=== PATIENT | female | born 1960 | race Caucasian/White ===

== ENCOUNTER 2019-12-05 06:58 | Day surgery (SDC) | payer MEDICAID ==
[~2019-12-05 06:58] MED LIST: Bupivacaine 0.5% 50 ML MDV ONE; Lidocaine 1% with EPINEPHrine 1:100,000 50 ML MDV ONE; Midazolam 1 MG/ML 2 ML SDV ONE; Propofol 200 MG/20 ML SDV ONE; fentaNYL 100 MCG/2 ML SDV ONE
[2019-12-05] MEDS ORDERED: Linezolid 600 MG in Premix Bag 1 BAG IV ONE (07:30)
[2019-12-05] MEDS ORDERED: Dextrose 5%-Lactated Ringers 1,000 ML IV SCH (07:30)
[2019-12-05] MEDS ORDERED: Acetaminophen 500 MG Tab PO ONE (07:30)
[2019-12-05] MEDS ORDERED: Propofol 200 MG/20 ML SDV ONE ×3 (08:42→09:12)
[2019-12-05 10:04] VITALS: BP 127/88; PULSE 70
--- NOTE | 2019-12-11 09:24 | OR ---
DATE OF PROCEDURE: 12/05/2019 SURGEON: Jose Bang MD PREOPERATIVE DIAGNOSIS: Indication for central venous access. POSTOPERATIVE DIAGNOSIS: Indication for central venous access. OPERATIVE PROCEDURE: Placement of Bard PowerPort via left subclavian vein approach (64032). ANESTHESIA: Local plus IV sedation. INDICATION FOR PROCEDURE: This is a 58-year-old female presenting with a new diagnosis of breast carcinoma with axillary isaac involvement. The plan is to proceed with a port placement to facilitate chemotherapy. The patient is HER2 positive, and given this, will be receiving preoperative HER2 targeted therapy prior to local regional surgical treatment. The plan is to proceed with a port to facilitate ongoing chemotherapy. Potential risks of the procedure, including bleeding, infection, injury to the vasculature and/or lung during the operative procedure were reviewed, and the patient wishes to proceed. DETAILS OF PROCEDURE: The patient was taken to the operating room and placed in a supine position. After IV sedation was administered, the upper chest and neck areas were prepped and draped. The left subclavian area was anesthetized with 1% lidocaine mixed with Marcaine. The left subclavian vein was cannulated and guidewire passed, and over the guidewire, a wire was then passed from there into the superior vena cava. Some additional local was then injected, and a transverse infraclavicular incision was made, carried down through the skin and subcutaneous tissue and through the pectoralis major fascia. A pocket was then placed behind the pectoralis fascia, and the Bard PowerPort was then placed in that area and the catheter cut such that the tip would lie in the area of the superior vena cava and right atrial junction. Over the introducer and peel-away catheter, the port catheter was then placed without difficulty. Good in and outflow was noted and the ports were flushed with heparinized saline. The incision was closed with some 3-0 and 4-0 Vicryl stitch deep and 4-0 Vicryl subcuticular stitch. Dressing was applied. The port was cannulated at this point in anticipation of chemotherapy to be given tomorrow. The patient will be receiving preoperative targeted HER2 therapy at this period of time. Near the end of chemotherapy, she should be set up for followup surgical consultation regarding local regional treatment options. Jose Bang MD /[id number]
== END 2019-12-05 11:53 | disposition home or self-care (01) ==
LOC: JP.SDS 06:58
PROVIDERS: ATTEND Surgery
DX: C50.919 Malignant neoplasm of unspecified site of unspecified female breast (principal); C77.3 Secondary and unspecified malignant neoplasm of axilla and upper limb lymph nodes
CPT/HCPCS: A9270-GY; C1788; J1642; J2020; J2250; J2704; J3010; J3490; J7121

== ENCOUNTER 2020-05-09 08:15 | Inpatient (IN) | payer MEDICAID ==
[~2020-05-09 08:15] MED LIST changes: -Bupivacaine 0.5% 50 ML MDV ONE; +Isosulfan Blue 5 ML SDV ONE; -Lidocaine 1% with EPINEPHrine 1:100,000 50 ML MDV ONE; -Midazolam 1 MG/ML 2 ML SDV ONE; -Propofol 200 MG/20 ML SDV ONE; -fentaNYL 100 MCG/2 ML SDV ONE
[2020-05-09] MEDS ORDERED: Acetaminophen 500 MG Tab PO ONE (09:00)
[2020-05-09] MEDS ORDERED: ceFAZolin 2 GM in Premix Bag 1 BAG IV ONE (09:20)
[2020-05-09] MEDS: Dextrose 5%-Lactated Ringers 1,000 ML IV SCH ×2 (09:48→15:35)
[2020-05-09] MEDS ORDERED: Naloxone 0.4 MG/ML SDV IVPUSH PRN (10:19)
[2020-05-09] MEDS ORDERED: HYDROmorphone/Normal Saline 15 MG/30 ML PCA IV PRN (10:19)
[2020-05-09] MEDS ORDERED: Ketamine 50 MG in Sodium Chloride 0.9% 49.5 ML IV SCH (10:30)
[2020-05-09] MEDS ORDERED: Ketamine 500 MG/5 ML MDV IV SCH (10:30)
[2020-05-09] MEDS ORDERED: Naloxone 0.4 MG/ML SDV IV PRN (11:00)
[2020-05-09] MEDS ORDERED: Dexamethasone 4 MG/ML SDV ONE (11:04)
[2020-05-09] MEDS ORDERED: Ondansetron 4 MG/2 ML SDV ONE (11:04)
[2020-05-09] MEDS ORDERED: fentaNYL 250 MCG/5 ML SDV ONE ×2 (11:04→11:59)
[2020-05-09] MEDS ORDERED: Propofol 200 MG/20 ML SDV ONE (11:04)
[2020-05-09] MEDS ORDERED: Glycopyrrolate 0.2 MG/ML 5 ML MDV ONE (11:04)
[2020-05-09] MEDS ORDERED: Rocuronium 50 MG/5 ML Vial ONE (11:04)
[2020-05-09] MEDS ORDERED: Neostigmine Methylsulfate 1 MG/ML 5 ML Syringe ONE (11:04)
[2020-05-09] MEDS ORDERED: hydrOXYzine HCL 100 MG/2 ML SDV IM PRN (14:36)
[2020-05-09] MEDS ORDERED: Ondansetron 4 MG/2 ML SDV IVPUSH PRN (14:36)
[2020-05-09] MEDS ORDERED: Cyclobenzaprine 10 MG Tab PO PRN (15:17)
[2020-05-09] MEDS: ceFAZolin 2 GM in Premix Bag 1 BAG IV SCH (18:07)
[2020-05-09] MEDS: Ibuprofen 800 MG Tab PO SCH (21:01)
[2020-05-09] MEDS ORDERED: diphenhydrAMINE 50 MG/ML SDV IVPUSH PRN (23:11)
[2020-05-10] MEDS: ceFAZolin 2 GM in Premix Bag 1 BAG IV SCH ×2 (02:05→10:30)
[2020-05-10] MEDS: Dextrose 5%-Lactated Ringers 1,000 ML IV SCH (02:06)
[2020-05-10] MEDS ORDERED: Venlafaxine 37.5 MG Cap.ER PO SCH (09:00)
[2020-05-10] MEDS: Ibuprofen 800 MG Tab PO SCH (10:31)
[2020-05-10 11:56] VITALS: BP 117/69; PULSE 75
--- NOTE | 2020-05-13 08:04 | DISCH ---
ADMISSION DIAGNOSIS: Breast cancer, stage IIIA, right upper outer quadrant of right breast, estrogen receptor positive. DISCHARGE DIAGNOSIS: Right modified radical mastectomy for stage IIIA malignant neoplasm of the right upper outer quadrant of right breast, estrogen receptor positive. Date of procedure 05/09/2020. Surgeon: Jose Bang MD. HISTORY: Vikki Wilson is a pleasant 59-year-old female, who has known right breast cancer, and she has had treatment per Oncology. After preoperative evaluation and discussion of possible risks and possible complications, she wished to proceed with surgical procedure. HOSPITAL COURSE: Vikki had her surgery on 05/09/2020. She had no operative complications. On postoperative day #1, her pain was well managed. Vital signs were normal. Activity was good. She received a physical therapy evaluation. Oral intake adequate. She was taught how to manage LESLIE drains at home and is able to be discharged to home on postoperative day 1. PHYSICAL EXAMINATION: GENERAL: Vikki Wilson is a 59-year-old female. VITAL SIGNS: Height is 5 feet 7 inches. Weight is 158 pounds. TPR is 98, 75, 16. Blood pressure 117/69. HEENT: Negative. NECK: Supple. HEART: Regular rate and rhythm. LUNGS: Clear. BREASTS: Right mastectomy dressing is dry and intact. The pressure dressing will be removed prior to discharge to home. ABDOMEN: Soft and nontender. EXTREMITIES: Without peripheral edema. DISPOSITION: Discharged to home. CONDITION: Stable and improving. FOLLOWUP: Appointment with Adelina Lucas PA-C, at [facility] on 05/17/2020 at 9:30 a.m. HOME MEDICATIONS: 1. Dilaudid 2 mg p.o. every 4 hours p.r.n. pain, #30. 2. Tylenol 650 mg q.4 hours p.r.n. pain, #100. To resume home medications. DIET: Usual diet as tolerated. Drink 8 to 10 glasses of water a day. ACTIVITY: As tolerated. No lifting greater than 10 pounds for 6 weeks. Driving: Do not drive for 1 week or while on pain medication. Shower/bathing: May shower. DISCHARGE INSTRUCTIONS: Wound incision care: Keep operative site clean and dry. Strip, empty, measure and record LESLIE drain 4 times a day. Notify provider if any fever, increased pain, swelling, redness, drainage, nausea, or vomiting. SPECIAL INSTRUCTION: Use incentive spirometer 10 times every hour while awake for 1 week.
--- NOTE | 2020-05-19 14:06 | OR ---
DATE OF PROCEDURE: 05/09/2020 SURGEON: Jose Bang MD PREOPERATIVE DIAGNOSES: Carcinoma of right breast with history of metastatic disease to axillary lymph nodes, status post neoadjuvant chemotherapy. POSTOPERATIVE DIAGNOSIS: Carcinoma of right breast with history of metastatic disease to axillary lymph nodes, status post neoadjuvant chemotherapy. PROCEDURE: Right modified radical mastectomy (78355). ANESTHESIA: General. SHOT POLISHER: Adelina Lucas PA-C INDICATIONS FOR PROCEDURE: This is a 59-year-old, presenting with an infiltrating ductal carcinoma in the right breast with metastatic disease confirmed in the axilla. The patient was MT and ER positive as well as Herceptin positive. Has undergone a neoadjuvant course of Taxol, Herceptin, and Perjeta. Clinically, her axillary disease has reduced significantly. Plan is to proceed at this point with a modified radical mastectomy. Potential risks of the procedure including bleeding, infection, injury to underlying nerves, potential local or distant tumor recurrence were reviewed, and the patient wishes to proceed. She is aware the plan thereafter will be course of radiation treatment followed by some additional chemotherapy. DETAILS OF PROCEDURE: The patient was taken to the operating room. After general endotracheal anesthesia was induced, the right breast and surrounding areas were prepped and draped. A transversely oriented elliptical incision was made and carried down through skin and subcutaneous tissue. Subcutaneous flaps were then raised superiorly, inferiorly, laterally, and medially to the usual extent and the breast was reflected off the chest wall in continuity with pectoralis major fascia. During the course of the dissection, there was no signs of the tumor encroaching on the planes of dissection. The axilla was then addressed. Interestingly, there was no obvious palpable disease within the axilla, i.e., no enlarged or firm nodes were clinically palpable. The axillary vein was dissected free anteriorly and the fatty lymphatic tissues in level I and level II of the axilla were then sequentially dissected free sparing the long thoracic and thoracodorsal nerves. The intercostobrachial nerve passed through the area of the lymph nodes and was intentionally sacrificed. The various vessels were either cauterized or clipped with hemoclips, and in more than 2 cases were suture ligated, and upon completion of the dissection, there appeared to be complete clearance of the fatty lymphatic tissues from axillary levels I and II. Palpation underneath the pectoralis minor muscle showed no evident palpable disease in that area, i.e., no palpable disease at the level of axillary at level III. At this point, the area was irrigated with antibiotic-containing saline solution. Two Yovani-Ovalles drains were placed through stab wounds inferior to the main incision, and the incision then closed with some 3-0 Vicryl subdermal stitch and marion for the skin. Drains were fixed with some 4-0 Vicryl stitch. The patient was taken to the recovery room in satisfactory condition. There were no evident complications. Physician technology assistant, Adelina Luacs, played an essential role in assisting in this case, helping to position the patient, retract structures as needed, as well as suturing and cutting sutures when indicated. Her presence improved patient safety and decreased operative time. Jose Bang MD /[id number]
== END 2020-05-10 12:15 | disposition home or self-care (01) | DRG 583 ==
LOC: EDSTATUS 08:15 → JP.SDSSCHI 08:25 → JP.SDS 08:25 → JP.MS 14:10
PROVIDERS: ADMIT Surgery; ATTEND Surgery
PROC: 0HTT0ZZ Resection of Right Breast, Open Approach (ICD-10-PCS; principal; 2020-05-09)
DX: C50.411 Malignant neoplasm of upper-outer quadrant of right female breast (principal); Z17.0 Estrogen receptor positive status [ER+]; G62.0 Drug-induced polyneuropathy; T45.1X5A Adverse effect of antineoplastic and immunosuppressive drugs, initial encounter
CPT/HCPCS: 88309; 88342; 97161-GP; A9270-GY; J0690; J1100; J1170; J2405; J2704; J2710; J3010; J3490; J7121; Q9968

== ENCOUNTER 2025-08-01 07:38 | Day surgery (SDC) | payer MEDICAID ==
[~2025-08-01 07:38] MED LIST changes: -Isosulfan Blue 5 ML SDV ONE; +Midazolam 1 MG/ML 2 ML SDV ONE; +Propofol 200 MG/20 ML SDV ONE; +fentaNYL 100 MCG/2 ML SDV ONE
[2025-08-01] MEDS: Lactated Ringers 1,000 ML IV SCH (08:43)
[2025-08-01] MEDS ORDERED: Propofol 200 MG/20 ML SDV ONE (09:32)
[2025-08-01 10:23] VITALS: PULSE 59
[2025-08-01 10:48] VITALS: BP 130/74
== END 2025-08-01 10:50 | disposition home or self-care (01) ==
LOC: JP.SDS 07:38
PROVIDERS: ATTEND Surgery
DX: Z12.11 Encounter for screening for malignant neoplasm of colon (principal); D12.2 Benign neoplasm of ascending colon; D12.3 Benign neoplasm of transverse colon; D12.5 Benign neoplasm of sigmoid colon; R19.5 Other fecal abnormalities; E78.00 Pure hypercholesterolemia, unspecified; Z91.09 Other allergy status, other than to drugs and biological substances; Z79.899 Other long term (current) drug therapy
CPT/HCPCS: 45380; 45385; 45390; J2250; J2704; J3010; J7120